=== PATIENT | male | born 1995 | race Caucasian/White ===

== ENCOUNTER 2019-12-24 16:32 | Emergency (ER) | payer SELFPAY ==
[~2019-12-24] VITALS: Ht 177.8 cm; Wt 65.0 kg
[2019-12-24] MEDS ORDERED: TRAMADOL 50MG TABLET PO ONE (16:45)
[2019-12-24] MEDS ORDERED: IBUPROFEN 600MG TABLET PO ONE (16:45)
[2019-12-24 21:27] VITALS: BP 125/78
== END 2019-12-24 21:26 | disposition home or self-care (01) ==
LOC: ER 16:32
DX: S09.8XXA Other specified injuries of head, initial encounter (principal); M54.5 Low back pain; R07.89 Other chest pain; H91.90 Unspecified hearing loss, unspecified ear; V43.52XA Car driver injured in collision with other type car in traffic accident, initial encounter; Y93.89 Activity, other specified; Y92.488 Other paved roadways as the place of occurrence of the external cause
CPT/HCPCS: 71045; 72070; 72100; 99285